=== PATIENT | female | born 1975 | race Caucasian/White ===

== ENCOUNTER 2024-07-31 13:41 | Emergency (ER) | payer MEDICAID ==
[~2024-07-31] VITALS: Ht 165.1 cm; Wt 89.8 kg
[2024-07-31 14:22] VITALS: BP 130/80; PULSE 65; RESP 16; TEMP 98.2; O2SAT 98
[2024-07-31] MEDS: HYDROcodone/APAP 5/325 1 TAB TABLET PO ONE (14:27)
--- NOTE | 2024-07-31 14:34 | ERN ---
General Chief Complaint: Ankle Problem Stated Complaint: RT ANKLE PAIN Time Seen by MD: 13:44 Time Seen by Midlevel: 13:44 Source: patient History of Present Illness Initial Comments The patient is a 48-year-old female presenting to the emergency department with right ankle pain. She states she was walking and accidentally stepped on a hole and twisted her ankle. Denies any other injury. Allergies: Coded Allergies: Penicillins (Unverified Allergy, Unknown, 07/31/24) aspirin (Unverified Allergy, Unknown, 07/31/24) Past Medical History Past Medical History: Diabetes-Type II, Hypotension, Seizure Medical History Other: NEUROPATHY Past Surgical History: Appendectomy, Cholecystectomy, Surgical History Other: SPLEENECTOMY ROS Dictation CONSTITUTIONAL: Negative except for HPI HEAD/FACE: Negative except for HPI EENT: Negative except for HPI RESPIRATORY: Negative except for HPI GASTROINTESTINAL/ABDOMINAL: Negative except for HPI GENITOURINARY: Negative except for HPI MUSCULOSKELETAL: Negative except for HPI INTEGUMENTARY: Negative except for HPI NEUROLOGICAL/PSYCH: Negative except for HPI HEMATOLOGIC/LYMPHATIC: Negative except for HPI All Systems Negative, Except as noted above. 13 point review of systems assessed and all negative except for above. Physical Exam Physical Exam Dictation Vital Signs reviewed General Appearance: Alert, oriented x 3, no acute distress, well developed, nourished. Head and Face: non-traumatic. Eyes: PERRL, pink conjunctivas, eyelid no trauma, anterior chamber with arcus senilis. Ears: Pinnas intact and no signs of trauma or erythema ear canals clear and no discharge TM no erythema Nose: No discharge, no bleeding. Oropharynx: Mouth normal, tongue pink, pharynx clear,no erythema, tonsils no exudates, no abscesses noted, mucous membrane moist Neck: Supple, non-tender, no thyromegaly, no masses, no JVD, no bruits Breast:Deferred Chest:No tenderness, no crepitus, no paradoxical movement, no retractions Lungs:Clear, well-ventilated, symmetric, no rales, no wheezing, no rhonchi, no stridor, good breath sounds bilaterally Heart: Regular rate, regular rhythm, no murmur, no gallops Vascular: no peripheral edema, Abdomen: Soft, positive bowel sounds, nondistended, no guarding, nontender, no rebound, no masses no hepatomegaly, no splenomegaly, no Martinez's sign, no hernias. Rectal: Deferred Genital: Deferred Neurological: Normal speech, motor function intact, sensory function intact Musculoskeletal: Neck nontender, full range of motion, back nontender, full range of motion, Extremities: nontender, full range of motion Skin: Color pink, dry, no turgor, no rash, no lacerations, no abrasions, no contusions. Lymphatic: Deferred MDM MDM: Differential diagnosis: Fracture, contusion, dislocation There are no social concerns with this patient. Prescription drug management Prescriptions will include: None Medical management and examination interpretation discussions were had by me with other qualified healthcare professionals as indicated for the patient's care. ED Course Orders Procedure Category Date Status Time Ankle Comp 3vws Rt RAD 07/31/24 Taken 13:44 Hydrocodone/Apap PHA 07/31/24 Complete 5/325 ([place] 5/325mg) 14:00 Current Medications Medications (Trade) Dose Ordered Sig/Lisa Route PRN Reason Start Time Stop Time Status Last Admin Dose Admin Acetaminophen/ Hydrocodone Bitart (NORco 5/325MG) 1 tab ONCE ONCE PO 07/31/24 14:00 07/31/24 14:01 DC 07/31/24 14:27 Vital Signs Date Time Temp Pulse Resp B/P (MAP) Pulse Ox O2 Delivery O2 Flow Rate FiO2 07/31/24 14:22 98.2 65 16 130/80 98 Room Air* 0 21 07/31/24 13:42 98.2 67 16 134/81 96 Room Air 0 DX & DISP Disposition: Discharge Departure Impression: Primary Impression: Right ankle sprain Condition: Stable Referrals: NONE (PCP) Time of Disposition: 14:32 I have reviewed the case, and I agree with, Diagnosis and Plan I performed the substantive portion of the visit. I have reviewed and personally made and approve the management plan that is documented in the note by myself or the GAURANG. I acknowledge for responsibility for the patient's management plan. PJ BRANNON Jul 31, 2024 14:34
[2024-07-31] MEDS ORDERED: IBUP-1673 PO (14:38)
[2024-07-31] MEDS ORDERED: ACET-2247 PO (14:38)
--- NOTE | 2024-07-31 14:54 | HMCIMG ---
ANKLE COMP 3VWS RT HISTORY: Inversion injury COMPARISON: None TECHNIQUE: 3 images of right ankle were obtained. FINDINGS: There is no acute displaced fracture or dislocation. There is soft tissue swelling. Degenerative changes are seen. IMPRESSION: 1. Findings as described above.
== END 2024-07-31 14:52 | disposition home or self-care (01) ==
LOC: EDH 13:41
DX: S93.491A Sprain of other ligament of right ankle, initial encounter (principal); E11.9 Type 2 diabetes mellitus without complications; Z88.0 Allergy status to penicillin; Z88.6 Allergy status to analgesic agent; Z90.49 Acquired absence of other specified parts of digestive tract; X50.1XXA Overexertion from prolonged static or awkward postures, initial encounter; Y93.01 Activity, walking, marching and hiking; Y92.89 Other specified places as the place of occurrence of the external cause; Y99.8 Other external cause status
CPT/HCPCS: 73610; 99283